=== PATIENT | female | born 1965 | race Caucasian/White ===

== ENCOUNTER 2024-04-26 07:39 | Day surgery (SDC) | payer OTHER, SELFPAY ==
[2024-04-05 10:30] VITALS: BMI 38.4
--- NOTE | 2024-04-05 11:09 | HPS.HSE ---
Family Physician
-
Family Physician: Kiki Rodarte
Chief Complaint
-
Paroxysmal atrial fibrillation.
History of Present Illness
The patient is a 58 year old female presenting today for paroxysmal atrial fibrillation. The patient reports chest discomfort, shortness of breath, intermittent palpitations, lightheadedness, and dizziness when out of rhythm. She
previously underwent pulmonary vein isolation in February 2020 secondary to this diagnosis. She is on current pharmacological therapy with Amiodarone and Nebivolol. She, however, does report notable fatigue while on her beta ras. She has been
compliant with Xarelto for oral anticoagulation. She notes that her atrial fibrillation symptoms greatly interfere with her activities of daily living and overall impact her quality of life. She is interested in pursuing pulmonary vein isolation for
further arrhythmia management. She denies any current complaints today such as chest pain or shortness of breath at rest, nausea, vomiting, diarrhea, cough, sore throat, or fever.
Medical History
Past Medical History
Past Medical History: Reports Other
Additional Past Medical History:
1. Paroxysmal atrial fibrillation, status post pulmonary vein isolation 02/2020; pharmacological therapy with Amiodarone and Nebivolol, oral anticoagulation with Xarelto.
2. Hypercholesterolemia.
3. First degree AV block.
4. Tachycardia-bradycardia syndrome.
5. Left ventricular hypertrophy.
6. Venous varicosities.
7. Obstructive sleep apnea, compliant with CPAP.
8. Mild renal insufficiency per pre-operative labs.
9. Colon polyps.
10. Nephrolithiasis.
11. Arthritis.
12. Mildly elevated transaminases.
13. Obesity, BMI 38.3.
Past Surgical History: Reports Other
Additional Past Surgical History:
1. Pulmonary vein isolation.
2. Hysterectomy.
3. Cholecystectomy.
4. Left shoulder manipulation.
5. Colonoscopy.
Social History
Tobacco: Non-smoker
Alcohol: None
Personal:
Living: Other (She lives with her in a 3 story home. )
Family History
Family History: Not pertinent
Allergies / Home Medications
Allergy/Medication List:
Home medications:
1. Amiodarone 200 mg p.o. every evening.
2. Atorvastatin 40 mg p.o. every evening.
3. Nebivolol 2.5 mg p.o. every evening.
4. Xarelto 20 mg p.o. every evening.
Allergies: Erythromycin. All seafood.
Review of Systems
-
A 12 point ROS was completed and negative except as noted: Yes
Physical Exam
Vital Signs
Blood pressure 143/70. Heart rate 49. Respirations 18. Pulse ox 99% on room air.
Height 5 feet, 3 inches. Weight 98.2 kg. BMI 38.3.
Physical Exam
General: Well Developed, Well Nourished and No Apparent Distress
HEENT: NormoCephalic, Moist mucous membranes, Atraumatic and PERRLA
Respiratory: Clear
Cardiac: Bradycardia (asymptomatic )
GI: Soft, Non Tender, Non Distended and Other (Obese. )
Musculoskeletal: No Edema and Normal Gait & Station
Skin: Warm and Dry
Neuro: AO x 3 and Nonfocal/grossly intact
Laboratory Results
-
DIAGNOSTIC STUDIES as of 04/05/2024: White blood cell count 4.6. Hemoglobin 14.0. Platelet count 202,000. PT 16.3. INR 1.28. Sodium 142. Potassium 4.7. BUN 20. Creatinine 1.1. Glucose 115. Magnesium 2.2. Calcium 9.6. AST 46. ALT 40. Albumin 4.1.
Type and screen B positive.
EKG 04/05/2024: Marked sinus bradycardia with first degree AV block. Left ventricular hypertrophy with repolarization abnormality.
Echocardiogram 01/03/2023: Ejection fraction is 55-60%. Moderate concentric left ventricular hypertrophy. Decreased left ventricular internal cavity size. No change from prior 2018 study.
Impression/Plan
-
IMPRESSION/PLAN:
1. Paroxysmal atrial fibrillation: The patient is in need of pulmonary vein isolation with Dr. Ketan Hernandez on 04/26/2024. The benefits and risks of the procedure have been explained to the patient. The patient understands these risks and wishes to
proceed. She will not be required to undergo a pre-procedural transesophageal echocardiogram as she has been compliant with her home oral anticoagulation. She is aware to continue her Xarelto uninterrupted prior to her procedure. She will hold her
Amiodarone 1 week prior to her ablation. She will take no medications the morning of her procedure.
[2024-04-05 11:25] LABS: INR 1.28; PT 16.3 Sec (11.4-14.6)
[2024-04-05 11:38] LABS: % Basophils 1.1 % (0-2); % Eosinophils 2.8 % (0-6); % Immature Granulocytes 0.2 % (0-0.5); % Lymphocytes 19.9 % (20.5-51.1); % Monocytes 7.1 % (1.7-9.3); % Neutrophils 68.9 % (42.2-75.2); Absolute Basophils 0.1 10^3/uL (0-0.2); Absolute Eosinophils 0.1 10^3/uL (0-0.7); Absolute Lymphocytes 0.9 10^3/uL (1.2-3.4); Absolute Monocytes 0.3 10^3/uL (0.1-0.6); Absolute Neutrophils 3.2 10^3/uL (1.4-6.5); Hematocrit 41.4 % (37.0-47.0); Mean Corp Hgb Conc. 33.8 g/dL (33.0-37.0); Mean Corpuscular Hgb 30.5 pg (27.0-31.0); Mean Corpuscular Volume 90.2 fL (81.0-99.0); Nucleated Red Blood Cells % 0 %; Platelet Count 202 10^3/uL (130-400); Red Blood Cell Count 4.59 10^6/uL (4.20-5.40); White Blood Cell Count 4.6 10^3/uL (4.8-10.8)
[2024-04-05 12:09] LABS: ALT (SGPT) 40 U/L (0-35); AST (SGOT) 46 U/L (14-36); Albumin 4.1 g/dl (3.5-5.0); Alkaline Phosphatase 116 U/L (38-126); Blood Urea Nitrogen 20 mg/dl (7-17); Calcium 9.6 mg/dl (8.4-10.2); Carbon Dioxide 22 mmol/L (22-30); Chloride 105 mmol/L (98-107); Estimated Creatinine Clearance 61 ml/min; Glucose 115 mg/dl (70-99); Magnesium 2.2 mg/dl (1.6-2.3); Potassium 4.7 mmol/L (3.5-5.1); Sodium 142 mmol/L (135-145); Total Bilirubin 0.8 mg/dl (0.2-1.3); Total Protein 6.9 g/dl (6.3-8.2); eGFR 57.88
[2024-04-26] VITALS (11 sets, daily range): BP systolic 115–178; BP diastolic 64–101; BMI 37.7
[2024-04-26 10:57] LABS: ACT-LR - POC 240 Seconds (116-155)
--- NOTE | 2024-04-26 11:55 | ITS.CL.ABL ---
Photographic Colorist - Ablation
Ablation
Procedure Report:
ELECTROPHYSIOLOGY ABLATION STUDY
DATE:: April 26, 2024�����������������������������REFERRING: Dr. Remi Mercado
INDICATION: Paroxysmal supraventricular tachycardia in the form of atrial fibrillation.��Prior AF ablation in 2019
HISTORY: See H and P.��As above
ANTIARRHYTHMIC DRUG: Amiodarone
PRE-PROCEDURE DENISE: No atrial thrombus on intracardiac ultrasound
PRESENTING RHYTHM: Sinus rhythm
'TIME-OUT':��called and confirmed.
SEDATION/ANESTHESIA:��provided via the anesthesia department using general anesthesia (LMA).
INTRAVENOUS/ARTERIAL ACCESS:
Right femoral venous - 10 Fr, 8Fr
Left femoral venous - 8 Fr, 6 Fr
Vascade vascular closure
Ultrasound guidance for bilateral femoral vein access was utilized by me to obtain access with demonstration of normal anatomy
CHADS-VASC Score:
HAS-Bled Score
PROCEDURE:
1.��A decapolar CS catheter was placed within the CS for mapping and pacing.��This was also used as the reference catheter for the 3-D map.
2. The intracardiac ultrasound catheter was positioned in the RA to identify the FO for targeting of transseptal puncture, assist��in identification of the pulmonary vein ostia, monitoring pre and post ablation pulmonary vein flow velocities,
monitoring for 'bubble' formation during RF application as a sign of thermal injury,��and to monitor for pericardial effusion during mapping and ablation procedure.���Left atrial size, LV ejection fraction, and pulmonary vein flows were monitored
pre and post ablation procedure. The other valves were inspected and found to be free of significant regurgitation or stenosis.
3.��Half of the calculated heparin bolus was administered prior to the first transeptal puncture. There was a marked interatrial septal aneurysm which extended into the right atrium. �Transseptal puncture was performed to diagnose RA and LA
pressure so that safety of LA mapping and ablation could be further assessed, and to access the left atrium and pulmonary veins for mapping and ablation.��This entailed advancing an 16.8 Russian sheath�RF wire with dilator into the superior vena cava
and withdrawing both (monitoring intracardiac ultrasound, fluoroscopy and tip pressure) with the tip oriented toward the atrial septum.��The fossa ovalis was engaged (indicated by sudden displacement of the sheath tip as well as tenting of the fossa
seen on intracardiac ultrasound).��Left atrial access was accomplished with the dilator only and the pigtail wire was advanced into the left atrium.��Left atrial catheter position was confirmed by pressure monitoring (RA mean pressure 8 mm Hg and LA
mean presure 14 mm Hg), LA saturation (99%),��as well as fluoroscopy.��The sheath was advanced over the dilator and positioned in the left atrium.��The remainder of the calculated heparin bolus was administered and heparin was
infused to maintain ACT at 300 -350 seconds throughout the case.
4.��RA pacing was performed via the proximal decapolar poles and LA pacing was performed via the distal decapolr poles.
5. A quadrapolar catheter was first positioned at the His position for His Bundle recording which was tagged via the 3-D Navex sytem, and then passed to the RVA for RV pacing and recording.
6. The multipolar catheter and the PFA catheter were placed in each of the LIPV, LSPV, RSPV and the RIPV.��
7.��Next, a 3-D map was created using Navex.���A 3-D reconstructed CT image was compared to the 3-D Navex map to assist in anatomic interpretation, mapping and ablation.��The CT image and the NavX image were fused.
8. There was focal connection of the left superior pulmonary vein distally approximately 0.5 cm past the tanisha with APD's capturing the left atrium. In the [place] and basket post the left superior pulmonary vein was reisolated. Utilizing the
basket pose for anchoring lesions at the roof and posterior wall outside the left veins and then flower pose for the roof posterior wall and LA floor. A total of 67 lesions were utilized. The initial pass brought about entrance and exit block in
all 4 pulmonary veins and the floor of the posterior wall with continued ingrowth and connection at the central roof and center of the posterior wall. Additional lesions in basket and flower pose were given in this region rendering the posterior
wall from roof to floor electrically isolated.
9. Normal sinus node and AV node function were noted.
TOTAL FLOURO TIME: 16.7 minutes
TOTAL RF DURATION: 0 minutes
REVERSAL OF HEPARIN: 40 mg of protamine, slow IV administration
COMPLICATIONS:
None
Intracardiac US shows no pericardial effusion post ablation.
SUMMARY:��
Complex left atrial mapping and ablation.
Isolation of the lesser pulmonary vein at the tanisha and LA floor posterior wall and roof. Additional substrate to the interatrial septum was given.
RECOMMENDATIONS:
1. Ambulate in 3 hours
2. Resume anticoagulation
3.��Consider same-day discharge
4.��Discontinue amiodarone
Copy to: Dr. Remi Mercado
[2024-04-26 13:21] LABS: ACT-LR - POC > 397 Seconds (116-155)
--- NOTE | 2024-04-26 16:00 | W.PN.UPDATE ---
Update Note
Progress Note Update
Pt seen post PFA. Bilat groins with vascade closure, no ht/bleeding, oob ambulating, urinating without difficulty. Post EKG NSR w/1st deg AVB as before, no acute changes. Resume xarelto tonight at usual time. Will d/c amiodarone at this time- will
not restart. Followup at [facility] in [address] Mercado thereafter. Home today if groin sites/tele remain stable.
== END 2024-04-26 15:33 | disposition home or self-care (01) ==
LOC: CATH 07:39
PROVIDERS: ATTENDING PHYSICIAN Internal Medicine Cardiovascular Disease; FAMILY PHYSICIAN Family Medicine; OTHER PHYSICIAN Internal Medicine Cardiovascular Disease
DX: I48.0 Paroxysmal atrial fibrillation (principal); R07.89 Other chest pain; R06.02 Shortness of breath; R00.2 Palpitations; E66.9 Obesity, unspecified; Z68.38 Body mass index [BMI] 38.0-38.9, adult; E78.00 Pure hypercholesterolemia, unspecified; R74.01 Elevation of levels of liver transaminase levels; I44.0 Atrioventricular block, first degree; I49.5 Sick sinus syndrome; N20.0 Calculus of kidney; M19.90 Unspecified osteoarthritis, unspecified site; G47.33 Obstructive sleep apnea (adult) (pediatric); I47.19 Other supraventricular tachycardia; I49.8 Other specified cardiac arrhythmias; Z79.01 Long term (current) use of anticoagulants; Z86.0100 Personal history of colon polyps, unspecified; Z88.1 Allergy status to other antibiotic agents; Z90.49 Acquired absence of other specified parts of digestive tract; Z90.710 Acquired absence of both cervix and uterus; Z98.890 Other specified postprocedural states
CPT/HCPCS: C1732; C1894; C1730; C1892; C1759; 36415; 80053; 83735; 85025; 85347; 85610; 86850; 86900; 86901; 93005; 93656; 93657; C1733; C1760